=== PATIENT | female | born 1960 | race Caucasian/White ===

== ENCOUNTER 2020-10-26 09:19 | Emergency (ER) | payer OTHER ==
[2020-10-26 09:30] VITALS: BMI 34.0
[2020-10-26] MEDS ORDERED: BAMLANIVIMAB 700 MG in SODIUM CHLORIDE 250 ML IVPB ONE (09:39)
[2020-10-26 11:10] VITALS: TEMP 99
[2020-10-26 12:28] VITALS: BP 130/79; PULSE 77
== END 2020-10-26 13:14 | disposition home or self-care (01) ==
LOC: JER 09:19
DX: U07.1 COVID-19 (principal)
CPT/HCPCS: 71046-TC-FY; 99284-25; M0239; Q0239